=== PATIENT | male | born 1965 | race Caucasian/White ===

== ENCOUNTER → 2017-04-05 | Outpatient (CLI) | payer MEDICARE, OTHER ==
[~2017-04-05] MED LIST: ALBU1AER INH; KALETRA200 PO; LAMI150T PO
--- NOTE | 2017-04-06 14:49 | HM ---
Date Performed: 04/05/2017 Time Performed: 08:42:00 HOOKUP DATE: 04/05/17 08:42:00 AM Tue ANALYSIS START TIME: 04/05/2017 8:47:00 AM ANALYSIS END TIME: 04/06/2017 8:51:00 AM PATIENT AGE: 51 PATIENT HEIGHT PATIENT WEIGHT DRUG LIST PATIENT DIAGNOSIS: syncope TEST NARRATIVE: The patient's average heart rate was 84 BPM. Heart rates greater than 120 B PM were noted 3% of the time. No episodes of bradycardia were noted. No pauses exceeding 2.0 sec onds were noted. 31 ventricular ectopics, which represented < 1% of the total beat count, were no ana. The highest ventricular ectopic frequency occurred from 09:00 PM to 10:00 PM Tue. During this time 8 VE(s) occurred. Ventricular ectopics were observed as 31 isolated beat(s) only. No couplets or runs were noted. 8 supraventricular ectopics, which represented < 1% of the total beat count, were noted. The highest supraventricular ectopic frequency occurred from 07:00 PM to 08:00 PM Tue. During this time 6 SVE(s) occurred. Multiple episodes of ST depression (defined as -1.0 mm or mor e) were noted in channel 1. The maximum depression of -1.5 mm occurred at 02:42:43 AM Wed. In [facility], a single episode of ST depression (defined as -1.0 mm or more) occurred at 08:50:12 AM Wed wit h a maximum depression of -1.8 mm. No episodes of ST depression (defined as -1.0 mm or more) were no ana in channel 3. TEST INTERPRETATION: Sinus rhythm with sinus tachycardia Rare PACs and short atrial runs Rare PVCs in singlets Signed by : Eh Verdugo
== END ==
LOC: HCAV 08:29
PROVIDERS: ATTEND Family Medicine
DX: R55 Syncope and collapse (principal)
CPT/HCPCS: 93225; 93226